=== PATIENT | female | born 1945 | race Caucasian/White ===

== ENCOUNTER → 2020-10-02 | Outpatient (CLI) | payer MEDICARE | END | disposition home or self-care (01) | LOC: CVU 06:47 | PROVIDERS: ATTEND Internal Medicine Cardiovascular Disease | DX: I08.8 Other rheumatic multiple valve diseases (principal); I49.3 Ventricular premature depolarization | CPT/HCPCS: 93306 ==

== ENCOUNTER → 2020-10-10 | Outpatient (CLI) | payer MEDICARE ==
[~2020-10-10] MED LIST: REGADENOSON 0.4 MG/5 ML SYRINGE ONE
== END | disposition home or self-care (01) ==
LOC: CFH 07:28
PROVIDERS: ATTEND Internal Medicine Cardiovascular Disease
DX: I49.3 Ventricular premature depolarization (principal)
CPT/HCPCS: 78452; 93017; A9502; J2785

== ENCOUNTER 2021-04-10 10:09 | Day surgery (SDC) | payer MEDICARE ==
[~2021-04-10] VITALS: Ht 171.4 cm; Wt 100.0 kg
[2021-04-10 10:46] VITALS: BP 148/70
[2021-04-10] MEDS ORDERED: ASPIRIN 325 MG TABLET EC PO ONE (11:00)
[2021-04-10] MEDS ORDERED: HYDROCHLOROTH12.5 MG PO (11:04)
[2021-04-10] MEDS ORDERED: GABA100C PO (11:04)
[2021-04-10] MEDS ORDERED: Fish Oil PO (11:04)
[2021-04-10] MEDS ORDERED: L.AC1CAP6 PO (11:04)
[2021-04-10] MEDS ORDERED: MONT10TA17 PO (11:04)
[2021-04-10] MEDS ORDERED: [UNRECOGNIZED DRUG - OTHER] OP (11:04)
[2021-04-10] MEDS ORDERED: PANT20TA4 PO (11:04)
[2021-04-10] MEDS ORDERED: FOLI1TAB32 PO (11:04)
[2021-04-10] MEDS ORDERED: AZAT50TA9 PO (11:04)
[2021-04-10] MEDS ORDERED: LOSA50TA14 PO (11:04)
[2021-04-10] MEDS ORDERED: VIT1CAPS11 PO (11:04)
[2021-04-10] MEDS ORDERED: ATOR10TA9 PO (11:04)
[2021-04-10] MEDS ORDERED: ABAT125S IV (11:04)
[2021-04-10] MEDS ORDERED: DILT120T3 PO (11:04)
[2021-04-10] MEDS ORDERED: CYCL10TA2 PO (11:05)
[2021-04-10] MEDS ORDERED: ALBU18HF INH (11:10)
[2021-04-10] MEDS ORDERED: FIBER PO (11:10)
[2021-04-10] MEDS ORDERED: ASCO500T8 PO (11:10)
[2021-04-10] MEDS ORDERED: ZINC220T2 PO (11:10)
[2021-04-10] MEDS ORDERED: GINK120T3 PO (11:10)
[2021-04-10] MEDS ORDERED: Vitamin D PO (11:10)
[2021-04-10] MEDS ORDERED: Calcium PO (11:10)
[2021-04-10] MEDS ORDERED: Magnesium PO (11:10)
[2021-04-10] MEDS ORDERED: FEXO180T72 PO (11:10)
[2021-04-10] MEDS ORDERED: VITA400T6 PO (11:10)
[2021-04-10] MEDS ORDERED: ASPIRIN 325 MG TABLET EC ONE (11:14)
[2021-04-10 11:24] LABS: BASOPHILS % (AUTO) 1 % (0-1); EOSINOPHILS % (AUTO) 2 % (1-7); LYMPHOCYTES % (AUTO) 20 % (22-44); MEAN CORPUSCULAR HGB CONC 34.3 g/dL (32.4-35.8); MEAN PLATELET VOLUME 7.1 fL (7.4-10.4); MONOCYTES % (AUTO) 9 % (2-9); NEUTROPHILS % (AUTO) 68 % (42-75); PLATELET COUNT 284 x10^3/uL (130-400); RED BLOOD COUNT 5.07 x10^6/uL (3.82-5.3); RED CELL DISTRIBUTION WIDTH 13.3 % (9.6-15.2)
[2021-04-10 11:31] LABS: ANION GAP 7 mmol/L (5-15); CALCIUM 8.6 mg/dL (8.5-10.1); CHLORIDE 110 mmol/L (98-107); CREATININE 0.63 mg/dL (0.55-1.02)
[2021-04-10 11:32] LABS: INTERNATIONAL NORMALIZED RATIO 1.01 (0.93-1.1); PROTHROMBIN TIME 10.8 Seconds (9.6-11.5)
[2021-04-10] MEDS ORDERED: MIDAZOLAM 1 MG/ML, 2ML ONE (13:41)
[2021-04-10] MEDS ORDERED: FENTANYL PF 100 MCG/2ML ONE (13:42)
[2021-04-10] MEDS ORDERED: LIDOCAINE-MPF 1%, 5ML ONE (13:42)
[2021-04-10] MEDS ORDERED: VERAPAMIL 2.5 MG/ML, 2ML ONE (13:42)
[2021-04-10] MEDS ORDERED: SODIUM CHLORIDE 0.9% 1,000 ML IV SCH (14:30)
== END 2021-04-10 16:24 | disposition home or self-care (01) ==
LOC: CACL 10:09
PROVIDERS: ATTEND Internal Medicine Cardiovascular Disease
DX: I49.3 Ventricular premature depolarization (principal); R94.39 Abnormal result of other cardiovascular function study; I10 Essential (primary) hypertension; E78.2 Mixed hyperlipidemia; J45.909 Unspecified asthma, uncomplicated; Z79.899 Other long term (current) drug therapy; Z98.890 Other specified postprocedural states
CPT/HCPCS: 36415; 80048; 85025; 85610; 93458; 99156; C1769; C1894; J2250; J3010; Q9967